=== PATIENT | male | born 1965 | race African-American/Black ===

== ENCOUNTER 2023-12-16 21:10 | Emergency (ER) | payer SELFPAY ==
[2023-12-16 21:18] VITALS: RESP 18; TEMP 99.5; BMI 45.7
[2023-12-16] MEDS: SODIUM CHLORIDE 0.9% 500 ML INFUS.BAG IV ONE (22:33)
[2023-12-16] MEDS: INSULIN (NOVOLOG) ASPART 100 UNITS/ML 10ML VIAL SQ ONE (22:40)
[2023-12-16] MEDS ORDERED: INSULIN ASPART SLIDING SCALE (NOVOLOG) 1 VIAL SQ ONE (22:43)
[2023-12-16 22:48] LABS: VENOUS BASE EXCESS -0.8 mmol/L (-2-2); VENOUS O2 SATURATION 90.8 % (70-80); VENOUS PCO2 36.1 mmHg (38-52); VENOUS PH 7.424 (7.310-7.410)
[2023-12-16 22:52] LABS: BASO % 0.3 % (0-2.0); HEMATOCRIT 37.7 % (35.4-49); HEMOGLOBIN 12.2 GM/dL (11.7-16.9); LYMPH % 7.4 % (8-40); MCH 29.9 pg (25.7-33.7); MCHC 32.4 g/dl (32.0-35.9); MEAN CELL VOLUME 92.2 fl (80-96); MONO % 9.4 % (3.8-10.2); NEUT % 82.9 % (42.8-82.8); PLATELET COUNT 235 10^3/uL (134-434); RBC 4.09 M/mm3 (4.00-5.60); RDW 13.4 % (11.9-15.9); WHITE BLOOD COUNT 13.4 K/mm3 (4.0-10.0)
[2023-12-16 22:53] LABS: EPI CELLS 9 /uL (0-25.1); HYALINE CASTS 1 /uL (0-3.1); PH,URINE 5.5 (5.0-8.0); URINE APPEARANCE CLEAR; URINE BACTERIA 1065 /uL (0-1359); URINE BILIRUBIN NEGATIVE (NEGATIVE); URINE COLOR YELLOW; URINE GLUCOSE (UA) 3+ (NEGATIVE); URINE KETONE NEGATIVE (NEGATIVE); URINE LEUK ESTERASE NEGATIVE (NEGATIVE); URINE NITRITE NEGATIVE (NEGATIVE); URINE PROTEIN 2+ (NEGATIVE); URINE RBC 15 /uL (0-23.9)
[2023-12-16 23:08] LABS: POTASSIUM 3.9 mmol/L (3.5-5.1)
[2023-12-16 23:10] LABS: CALCIUM 9.1 mg/dL (8.5-10.1)
[2023-12-16 23:11] LABS: ALBUMIN 3.2 g/dl (3.4-5.0); BLOOD UREA NITROGEN 24.7 mg/dL (7-18)
[2023-12-16 23:15] LABS: CREATININE 1.5 mg/dL (0.55-1.3); TOT PROT 8.1 g/dl (6.4-8.2)
[2023-12-16 23:18] LABS: BILIRUBIN,TOTAL 1.4 mg/dL (0.2-1)
[2023-12-17 00:04] LABS: HIV INTERPRETATION NEGATIVE (NEGATIVE)
[2023-12-17 01:36] VITALS: BP 156/92; PULSE 99
== END 2023-12-17 01:50 | disposition home or self-care (01) ==
LOC: JER 21:10
DX: E11.65 Type 2 diabetes mellitus with hyperglycemia (principal); R35.0 Frequency of micturition; R53.83 Other fatigue
CPT/HCPCS: 36415; 80053; 81003; 82010; 82803; 82962; 85025; 86803; 87389; 99283-25

== ENCOUNTER 2024-03-30 18:37 | Inpatient (IN) | payer BC ==
[2024-03-30] MEDS ORDERED: ACETAMINOPHEN INJECTION 100 ML ONE (20:49)
[2024-03-30 21:00] LABS: HEMATOCRIT 40.8 % (35.4-49); HEMOGLOBIN 13.3 GM/dL (11.7-16.9); MCH 29.7 pg (25.7-33.7); MCHC 32.5 g/dl (32.0-35.9); MEAN CELL VOLUME 91.3 fl (80-96); MEAN PLT VOLUME 8.5 fl (7.5-11.1); PLATELET COUNT 212 10^3/uL (134-434); RBC 4.47 M/mm3 (4.00-5.60); RDW 14.4 % (11.9-15.9); WHITE BLOOD COUNT 23.3 K/mm3 (4.0-10.0)
[2024-03-30] MEDS: ACETAMINOPHEN 1000 MG/100 ML BAG IVPB ONE (21:11)
[2024-03-30] MEDS: SODIUM CHLORIDE 1,000 ML IV STA (21:11)
[2024-03-30 21:12] LABS: CALCIUM 9.3 mg/dL (8.5-10.1)
[2024-03-30 21:13] LABS: ALBUMIN 3.4 g/dl (3.4-5.0); BLOOD UREA NITROGEN 21.1 mg/dL (7-18)
[2024-03-30 21:16] LABS: CREATININE 1.8 mg/dL (0.55-1.3)
[2024-03-30 21:18] LABS: BILIRUBIN,TOTAL 1.6 mg/dL (0.2-1); TOT PROT 8.5 g/dl (6.4-8.2)
[2024-03-30 22:08] LABS: ANISOCYTOSIS 0; MACROCYTOSIS 0
[2024-03-30] MEDS ORDERED: ASPIRIN 81 MG CHEWABLE TABLETS ONE (22:08)
[2024-03-30] MEDS: ASPIRIN 81 MG CHEWABLE TABLETS PO ONE (22:13)
[2024-03-30 23:23] LABS: CHOLESTEROL 143 mg/dL (50-200)
[2024-03-30 23:26] LABS: HDL CHOLESTEROL 57 mg/dL (40-60)
[2024-03-30 23:42] LABS: LDL CHOLESTEROL (ONLY SJRH) 78 mg/dL (5-100)
[2024-03-30] MEDS ORDERED: HEPARIN INFUSION - 500 ML IVPB SCH ×2 (23:45)
[2024-03-30] MEDS ORDERED: HEPARIN NA (PORCINE) 5,000 UNITS/ML 1ML VIAL ONE (23:51)
[2024-03-30] MEDS: HEPARIN NA (PORCINE) 5,000 UNITS/ML 1ML VIAL IVPUSH ONE (23:54)
[2024-03-30] MEDS ORDERED: HEPARIN NA (PORCINE) 5,000 UNITS/ML 1ML VIAL IVPUSH PRN (23:57)
[2024-03-31] MEDS: SODIUM CHLORIDE 1,000 ML IV STA (00:16)
[2024-03-31] MEDS: HEPARIN - 25,000 UNIT in SODIUM CHLORIDE 495 ML IV SCH (01:29)
[2024-03-31] MEDS ORDERED: CEFTRIAXONE 1 G/50 ML PREMIX 50 ML IVPB ONE (01:38)
[2024-03-31 01:40] LABS: EPI CELLS 10 /uL (0-25.1); HYALINE CASTS 0 /uL (0-3.1); URINE APPEARANCE CLEAR; URINE BACTERIA 20 /uL (0-1359); URINE BILIRUBIN NEGATIVE (NEGATIVE); URINE COLOR YELLOW; URINE GLUCOSE (UA) NEGATIVE (NEGATIVE); URINE KETONE NEGATIVE (NEGATIVE); URINE LEUK ESTERASE TRACE (NEGATIVE); URINE NITRITE NEGATIVE (NEGATIVE); URINE PROTEIN 1+ (NEGATIVE); URINE RBC 35 /uL (0-23.9); URINE WBC 77 /uL (0-25.8)
[2024-03-31] MEDS: CEFTRIAXONE 1,000 MG in DEXTROSE 5%-WATER - 50 ML IVPB ONE (01:41)
[2024-03-31 02:12] LABS: INR 1.63 (0.83-1.09); PROTHROMBIN TIME (PATIENT) 18.5 SEC (9.7-13.0)
[2024-03-31 02:40] LABS: ACTIVATED PTT 54.3 SECONDS (25.2-36.5)
[2024-03-31] MEDS: SODIUM CHLORIDE 1,000 ML IV SCH (04:07)
[2024-03-31] MEDS ORDERED: SODIUM CHLORIDE 1,000 ML IV SCH (05:34)
[2024-03-31 07:19] LABS: HEMATOCRIT 40.2 % (35.4-49); HEMOGLOBIN 12.7 GM/dL (11.7-16.9); MCH 29.3 pg (25.7-33.7); MCHC 31.6 g/dl (32.0-35.9); MEAN CELL VOLUME 92.8 fl (80-96); MEAN PLT VOLUME 8.8 fl (7.5-11.1); PLATELET COUNT 203 10^3/uL (134-434); RBC 4.33 M/mm3 (4.00-5.60); RDW 14.5 % (11.9-15.9); WHITE BLOOD COUNT 21.7 K/mm3 (4.0-10.0)
[2024-03-31 07:29] LABS: POTASSIUM 3.6 mmol/L (3.5-5.1)
[2024-03-31 07:33] LABS: CALCIUM 8.8 mg/dL (8.5-10.1)
[2024-03-31 07:34] LABS: ALBUMIN 3.2 g/dl (3.4-5.0); BLOOD UREA NITROGEN 17.5 mg/dL (7-18)
[2024-03-31 07:35] LABS: MAGNESIUM 1.8 mg/dL (1.8-2.4)
[2024-03-31 07:37] LABS: CREATININE 1.4 mg/dL (0.55-1.3); PHOSPHOROUS 2.4 mg/dL (2.5-4.9)
[2024-03-31 07:38] LABS: BILIRUBIN,TOTAL 1.7 mg/dL (0.2-1)
[2024-03-31] MEDS: INSULIN ASPART SLIDING SCALE (NOVOLOG) 1 VIAL SQ SCH (09:36)
[2024-03-31] MEDS: INSULIN (LEVEMIR) 100 UNITS/ML UNITS SQ SCH (09:36)
[2024-03-31] MEDS: ASPIRIN 81 MG CHEWABLE TABLETS PO SCH (09:39)
[2024-03-31] MEDS ORDERED: INSULIN (LEVEMIR) 100 UNITS/ML UNITS SQ SCH (10:00)
[2024-03-31] MEDS: PIPERACILLIN/TAZOB 3.375 GM 50 ML IVPB SCH ×2 (12:30→17:57)
[2024-03-31] MEDS: HEPARIN NA (PORCINE) 5,000 UNITS/ML 1ML VIAL IVPUSH PRN ×2 (13:21→21:59)
[2024-03-31 18:36] VITALS: BMI 46.3
[2024-04-01] MEDS: ACETAMINOPHEN 500 MG TABLET (FP) PO ONE (06:24)
[2024-04-01 08:23] LABS: BASO % 0.3 % (0-2.0); EOS % 0.1 % (0-4.5); HEMATOCRIT 37.4 % (35.4-49); HEMOGLOBIN 12.4 GM/dL (11.7-16.9); LYMPH % 5.1 % (8-40); MCH 30.5 pg (25.7-33.7); MCHC 33.2 g/dl (32.0-35.9); MEAN CELL VOLUME 91.8 fl (80-96); MEAN PLT VOLUME 8.4 fl (7.5-11.1); NEUT % 90.5 % (42.8-82.8); PLATELET COUNT 189 10^3/uL (134-434); RBC 4.07 M/mm3 (4.00-5.60); RDW 14.2 % (11.9-15.9); WHITE BLOOD COUNT 10.9 K/mm3 (4.0-10.0)
[2024-04-01 08:37] LABS: POTASSIUM 3.4 mmol/L (3.5-5.1)
[2024-04-01 08:46] LABS: ALBUMIN 2.9 g/dl (3.4-5.0)
[2024-04-01 08:47] LABS: BILIRUBIN,TOTAL 1.7 mg/dL (0.2-1); BLOOD UREA NITROGEN 18.9 mg/dL (7-18); TOT PROT 7.6 g/dl (6.4-8.2)
[2024-04-01 08:48] LABS: CALCIUM 8.5 mg/dL (8.5-10.1)
[2024-04-01 08:50] LABS: CREATININE 1.4 mg/dL (0.55-1.3)
[2024-04-01] MEDS ORDERED: ACETAMINOPHEN 325 MG TABLET (FP) PO PRN (17:10)
[2024-04-02] MEDS: SODIUM CHLORIDE 1,000 ML IV SCH (08:15)
[2024-04-02 08:24] LABS: HEMATOCRIT 38.3 % (35.4-49); HEMOGLOBIN 12.8 GM/dL (11.7-16.9); MCH 30.3 pg (25.7-33.7); MCHC 33.4 g/dl (32.0-35.9); MEAN CELL VOLUME 90.7 fl (80-96); MEAN PLT VOLUME 8.6 fl (7.5-11.1); PLATELET COUNT 196 10^3/uL (134-434); RBC 4.23 M/mm3 (4.00-5.60); RDW 14.3 % (11.9-15.9)
[2024-04-02 08:41] LABS: POTASSIUM 3.7 mmol/L (3.5-5.1)
[2024-04-02 08:54] LABS: CALCIUM 8.6 mg/dL (8.5-10.1)
[2024-04-02 08:55] LABS: MAGNESIUM 2.2 mg/dL (1.8-2.4)
[2024-04-02 08:57] LABS: ALBUMIN 2.9 g/dl (3.4-5.0); BLOOD UREA NITROGEN 16.8 mg/dL (7-18)
[2024-04-02 09:00] LABS: BILIRUBIN,TOTAL 1.2 mg/dL (0.2-1); CREATININE 1.3 mg/dL (0.55-1.3)
[2024-04-02 09:02] LABS: TOT PROT 7.7 g/dl (6.4-8.2)
[2024-04-02 09:57] LABS: ANISOCYTOSIS 0; HELMET CELLS 0; HOWELL-JOLLY BODIES 0; MACROCYTOSIS 0; OVALOCYTE 0; ROULEAU 0; SICKELED CELLS 0; TARGET CELLS 0; TEAR DROP CELLS 0; TOXIC GRANULATION 0
[2024-04-03] MEDS ORDERED: INSULIN ASPART SLIDING SCALE (NOVOLOG) 1 VIAL SQ ONE ×2 (06:48→08:00)
[2024-04-03 07:01] VITALS: RESP 18
[2024-04-03 07:14] LABS: HEMATOCRIT 37.4 % (35.4-49); HEMOGLOBIN 12.2 GM/dL (11.7-16.9); MCH 29.7 pg (25.7-33.7); MCHC 32.5 g/dl (32.0-35.9); MEAN CELL VOLUME 91.4 fl (80-96); MEAN PLT VOLUME 8.3 fl (7.5-11.1); PLATELET COUNT 206 10^3/uL (134-434); RBC 4.09 M/mm3 (4.00-5.60); RDW 14.1 % (11.9-15.9); WHITE BLOOD COUNT 5.6 K/mm3 (4.0-10.0)
[2024-04-03 07:38] LABS: POTASSIUM 3.8 mmol/L (3.5-5.1)
[2024-04-03 07:49] LABS: ALBUMIN 2.8 g/dl (3.4-5.0); CALCIUM 8.5 mg/dL (8.5-10.1)
[2024-04-03 07:50] LABS: BLOOD UREA NITROGEN 19.4 mg/dL (7-18)
[2024-04-03 07:52] LABS: BILIRUBIN,DIRECT 0.2 mg/dL (0.0-0.2)
[2024-04-03 07:53] LABS: CREATININE 1.3 mg/dL (0.55-1.3)
[2024-04-03 07:54] LABS: BILIRUBIN,TOTAL 0.8 mg/dL (0.2-1); TOT PROT 7.6 g/dl (6.4-8.2)
[2024-04-03 09:10] VITALS: BP 126/90; PULSE 83; TEMP 98.1
== END 2024-04-03 14:15 | disposition home or self-care (01) | DRG 871 ==
LOC: JER 18:37 → JERBED 23:47 → J4W 03-31 08:25 → OBSVTOIN 03-31 14:12
PROVIDERS: ADMIT Internal Medicine; ATTEND Internal Medicine
DX: A41.9 Sepsis, unspecified organism (principal); I21.A1 Myocardial infarction type 2; M62.82 Rhabdomyolysis; N17.9 Acute kidney failure, unspecified; N41.0 Acute prostatitis; Z68.42 Body mass index [BMI] 45.0-49.9, adult; E86.0 Dehydration; E11.65 Type 2 diabetes mellitus with hyperglycemia; E66.01 Morbid (severe) obesity due to excess calories
CPT/HCPCS: 0241U-QW; 36415; 71045-TC-FY; 71250-TC; 74176-TC; 76775-TC; 80053; 80061; 81003; 82248; 82465; 82550; 82553; 82962; 83036; 83735; 84100; 84484; 85025; 85027; 85610; 85730; 87040; 87086; 93005; 93010; 93306-TC; 99285-25; G0378; J0131; J1644